=== PATIENT | male | born 1950 | race Asian ===

== ENCOUNTER 2023-01-22 09:00 | Emergency (ER) | payer MEDICARE ==
[~2023-01-22] VITALS: Ht 172.7 cm; Wt 90.3 kg
[2023-01-22 09:17] VITALS: BP 135/68; PULSE 96; RESP 18; TEMP 97.6; O2SAT 99
[2023-01-22] MEDS ORDERED: CIPR0.3S67 OP (09:28)
== END 2023-01-22 09:48 | disposition home or self-care (01) ==
LOC: ER 09:00
DX: H10.33 Unspecified acute conjunctivitis, bilateral (principal); I10 Essential (primary) hypertension; E11.9 Type 2 diabetes mellitus without complications; E78.5 Hyperlipidemia, unspecified; I48.91 Unspecified atrial fibrillation; Z91.040 Latex allergy status; Z91.041 Radiographic dye allergy status; Z79.899 Other long term (current) drug therapy

== ENCOUNTER 2024-04-03 08:34 | Emergency (ER) | payer MEDICARE ==
[~2024-04-03] VITALS: Ht 172.7 cm; Wt 70.0 kg
[~2024-04-03 08:34] MED LIST: CIPR0.3S67 OP
--- NOTE | 2024-04-03 10:23 | ED.PDOC ---
Eye-HPI HPI Comments 73 year old male presents to the ED with a chief complaint of RT eye pain onset 2 days. Patient states he began experiencing RT eye pain and redness 2 days ago, began using eye drops but ran out of medication. PMHx afib, HTN, HLD, DM. Denies headache dizziness, chest pain, shortness of breath, nausea, vomiting, diarrhea. No other symptoms or modifying factors present at this time. Chief Complaint: Eye Problem Time Seen by MD: 09:30 Primary Care Provider: prabha cabrera Reviewed Notes: Medications, Allergies Allergies: Coded Allergies: Iodine (Verified Allergy, Unknown, 01/22/23) Home Meds Active Scripts Ciprofloxacin HCl (Ophth) (Ciprofloxacin Hydrochlori) 0.3 % Christa, 0.3 DROP OP QID, #5 ML Prov:MEKA SOW 01/22/23 Information Source: Patient Mode of Arrival: Ambulatory Timing: Days Duration: Since onset Prehospital treatment: None Quality: Pain, Red, Discharge Conjunctiva: Discharge Associated signs and symptoms: Discharge Past Medical History PAST MEDICAL HISTORY: AFIB, DM, High Lipids, HTN Surgical History: Denies all surgeries Family History Family History: Reviewed,noncontributory to illness Social History Smoker: Non-Smoker Alcohol: Denies ETOH Use Drugs: Denies Drug Use Lives In: Home Constitutional: denies: chills, diaphoresis, fatigue, fever, malaise, sweats, weakness, others EENTM: reports: eye pain, eye redness; denies: blurred vision, double vision, ear bleeding, ear discharge, ear drainage, ear pain, ear ringing, hearing loss, mouth pain, mouth swelling, nasal discharge, nose bleeding, nose congestion, nose pain, photophobia, tearing, throat pain, throat swelling, voice changes, others Respiratory: denies: cough, hemoptysis, orthopnea, SOB at rest, shortness of breath, SOB with excertion, stridor, wheezing, others Cardiovascular: denies: chest pain, dizzy spells, diaphoresis, Dyspnea on exertion, edema, irregular heart beat, left arm pain, lightheadedness, palpitations, PND, syncope, others Gastrointestinal: denies: abdomen distended, abdominal pain, blood streaked bowels, constipated, diarrhea, dysphagia, difficulty swallowing, hematemesis, melena, nausea, poor appetite, poor fluid intake, rectal bleeding, rectal pain, vomiting, others Genitourinary: denies: burning, dysuria, flank pain, frequency, hematuria, incontinence, penile discharge, penile sore, pain, testicle pain, testicle swelling, urgency, others Neurological: denies: dizziness, fainting, headache, left sided numbness, left sided weakness, numbness, paresthesia, pre-existing deficit, right sided numbness, right sided weakness, seizure, speech problems, tingling, tremors, weakness, others Musculoskeletal: denies: back pain, gout, joint pain, joint swelling, muscle pain, muscle stiffness, neck pain, others Integumetry: denies: bruises, change in color, change in hair/nails, dryness, laceration, lesions, lumps, rash, wounds, others Allergic/Immunocompromised: denies: Difficulty Healing, Frequent Infections, Hives, Itching, others Hematologic/Lymphatic: denies: anemia, blood clots, easy bleeding, easy bruising, swollen glands, others Endocrine: denies: excessive hunger, excessive sweating, excessive thirst, excessive urination, flushing, intolerance to cold, intolerance to heat, unexplained weight gain, unexplained weight loss, others Psychiatric: denies: anxiety, bipolar disorder, depression, hopeless, panic disorder, schizophrenia, sleepless, suicidal, others All Other Systems: Reviewed and Negative Physical Exam General Appearance: Moderate Distress HEENT: Other (Right eye conjunctivitis) Neck: Full Range of Motion, Non-Tender, Normal, Normal Inspection Respiratory: Chest Non-Tender, Lungs Clear, No Accessory Muscle Use, No Respiratory Distress, Normal Breath Sounds Cardiovascular: No Edema, No JVD, No Murmur, No Gallop, Normal Peripheral Pulses, Regular Rate/Rhythm Breast Exam: Deferred Gastrointestinal: No Organomegaly, Non Tender, No Pulsatile Mass, Normal Bowel Sounds, Soft Genitalia: Deferred Pelvic: Deferred Rectal: Deferred Extremities: No calf tenderness, Normal capillary refill, Normal inspection, Normal range of motion, Non-tender, No pedal edema Musculoskeletal : Apperance: Normal Neurologic: Alert, 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 Was a procedure done?: No EENT DIFF Eye: Conjunctivitis, Bacterial, Viral X-Ray, Labs, Meds, VS Vital Signs Date Time Temp Pulse Resp B/P (MAP) Pulse Ox O2 Delivery O2 Flow Rate FiO2 04/03/24 08:46 98.6 90 19 137/79 (98) 100 Patient alert. Complaining of redness of right eye. Vitals stable. Answering questions. Currently on Cipro eyedrops. He did run his eyedrops. Was given prescription of Cipro eyedrops. Reviewed his previous visit. Explained to the patient. Was told to follow up with his primary care physician. Was told to come back if there is any problem. Time of 1ST Reevaluation: 10:00 Reevaluation 1ST: Improved Patient Education/Counseling: Diagnosis, Treatment, Prognosis Family Education/Counseling: No Family Present Departure 1 Departure Time of Disposition: 10:38 Impression: Primary Impression: Conjunctivitis, right eye Qualified Codes: H10.31 - Unspecified acute conjunctivitis, right eye Disposition: HOME / SELF CARE / HOMELESS Condition: Good e-Prescriptions Gentamicin Sulfate (Gentamicin Sulfate) 0.3 % Christa 2 DROP EACHEYE QID for 5 Days, #5 ML Prov: NOHEMI SANTIAGO MD 04/03/24 Discharged With: Self Critical Care Note Critical Care Time?: No Stability Stability form required: No I personally scribed for NOHEMI SANTIAGO MD ([email or web address]) on 04/03/24 at 10:23. Electronically submitted by Chen Estes ([email or web address]). NOHEMI SANTIAGO MD Apr 03, 2024 10:23
[2024-04-03] MEDS ORDERED: GENT0.3S10 EACHEYE (10:40)
[2024-04-03 11:06] VITALS: BP 106/78; TEMP 98.1
[2024-04-03 11:07] VITALS: PULSE 87; RESP 16; O2SAT 97
== END 2024-04-03 11:12 | disposition home or self-care (01) ==
LOC: ER 08:34
DX: H10.9 Unspecified conjunctivitis (principal); E11.9 Type 2 diabetes mellitus without complications; I10 Essential (primary) hypertension; I48.91 Unspecified atrial fibrillation; E78.5 Hyperlipidemia, unspecified; Z88.8 Allergy status to other drugs, medicaments and biological substances